=== PATIENT | male | born 1990 | race Caucasian/White ===

== ENCOUNTER 2021-09-18 09:04 | Emergency (ER) | payer MEDICAID, SELFPAY ==
[2021-09-18 09:09] VITALS: BP 142/93; PULSE 102; RESP 17; TEMP 36.6; O2SAT 97; BMI 25.7
--- NOTE | 2021-09-18 09:24 | ED_ITS ---
HPI - Alcohol General: Chief Complaint: Alcohol Stated Complaint: ETOH Time Seen by Provider: 09/18/21 09:06 Source: patient and EMS Mode of arrival: EMS History of Present Illness: 31-year-old male presents emergency room from [facility]. Patient checked in for alcohol rehab there but he had gone on a steiner just before checking in. He took 50 mg of trazodone 25 of Librium and drank a pint of hard liquor. His blood alcohol is 367 at this time. He is awake and alert. Patient tells me he usually take drinks 4 to 5 pints per day. In addition to this he is on 50 mg of 8 Seroquel at night. He has attempted to stop drinking in the past precipitates a lot of anxiety but he has not had any seizures from alcohol withdrawal in the past. He also was formally on very high doses of methadone and was weaned off of that he states this did give him seizures. He denies any injury at this time no recent illness he is acutely intoxicated but very functional evidently quite used to this level of alcohol. MD complaint: alcohol intoxication Associated symptoms: Deny abdominal pain, hematemesis, melena, nausea or vomiting Review of Systems Const: Denies: fever(s), chills, body aches, change in appetite, fatigue or malaise ENMT: Denies: throat pain, ear or mastoid pain, nasal discharge or nasal congestion Card: Denies: chest pain, edema, dyspnea on exertion or orthopnea Resp: Denies: dyspnea, productive cough or non-productive cough GI: Denies: abdominal pain, nausea, vomiting, hematemesis, coffee ground emesis, diarrhea, constipation, bloating, hematochezia or melena : Denies: flank pain, dysuria, urinary frequency or urinary urgency Skin/Breast: Denies: rash or pruritus PFSH ED PFSH: Medical History Alcoholism Seizures Surgical History No pertinent past surgical history Social History Smoking and tobacco status: current every day smoker Alcohol intake: current Alcohol intake frequency: 3 or more drinks per day Alcohol type: hard liquor Physical Exam Const: ORIENTATION/CONSCIOUSNESS: Yes awake HENMT: COMMON NORMALS: normocephalic, atraumatic and hearing grossly normal bilaterally HEAD & SCALP: normocephalic and atraumatic Neck/C-Spine: COMMON NORMALS: full ROM, no lymphadenopathy, supple and no JVD Lymph: LYMPHATIC: no lymphadenopathy noted and no lymphedema noted Resp: COMMON NORMALS: normal respiratory effort, No retractions, No use of accessory muscles and clear to auscultation bilaterally AUSCULTATION: clear to auscultation bilaterally Cardio: COMMON NORMALS: no JVD, regular rate, regular rhythm and No murmurs present (Cardio) RATE: regular rate RHYTHM: regular rhythm GI: COMMON NORMALS: Soft to palpation and No hepatosplenomegaly present AUSCULTATION: Yes normoactive bowel sounds PALPATION: Yes Soft to palpation, No Tenderness to palpation present (GI), No Guarding due to palpation present (GI) and Yes No hepatosplenomegaly present Extremity: COMMON NORMALS: normal to inspection, capillary refill normal, no clubbing, cyanosis or edema, no calf tenderness and no pedal edema Skin: COMMON NORMALS: no rashes or lesions noted GENERAL SKIN EXAM: no rashes or lesions noted Course 2 Vital Signs: Vital signs: Vital Signs Temperature 98.0 F 09/18/21 09:31 Pulse Rate 85 09/18/21 09:31 Respiratory Rate 16 09/18/21 09:31 Blood Pressure 124/87 09/18/21 09:31 Pulse Oximetry 96 09/18/21 09:31 Oxygen Delivery Me thod 09/18/21 09:31 MDM - Alcohol Medical Decision Making Patient left AMA before visit was completed he is acutely intoxicated. He is supposed to be going to [facility]. He left AGAINST MEDICAL ADVICE prior to completion of service today. Lab Data : 09/18/21 09:20 09/18/21 09:20 Laboratory Results WBC 6.4 10^3/uL (4.0-10.0) 09/18/21 09:20 RBC 4.35 10^6/uL (4.1-5.3) 09/18/21 09:20 Hgb 15.1 g/dL (11.7-16.6) 09/18/21 09:20 Hct 43.7 % (42.0-52.0) 09/18/21 09:20 MCV 100.5 fl (80-94) H 09/18/21 09:20 MCH 34.7 pg (28.0-34.0) H 09/18/21 09:20 MCHC 34.6 g/dL (30.0-36.0) 09/18/21 09:20 RDW 14.4 % (12.1-15.1) 09/18/21 09:20 Plt Count 124 10^3/cmm (130-400) L 09/18/21 09:20 MPV 11.0 fL (7.4-10.4) H 09/18/21 09:20 Neut % (Auto) 65.0 % 09/18/21 09:20 Lymph % (Auto) 25.6 % 09/18/21 09:20 Cross % (Auto) 7.7 % 09/18/21 09:20 Eos % (Auto) 0.8 % 09/18/21 09:20 Baso % (Auto) 0.6 % 09/18/21 09:20 Neut # (Auto) 4.13 10^3/uL (1.8-7.7) 09/18/21 09:20 Lymph # (Auto) 1.6 10^3/uL (0.8-4.8) 09/18/21 09:20 Cross # (Auto) 0.5 10^3/uL (0.2-0.9) 09/18/21 09:20 Eos # (Auto) 0.1 10^3/uL (0.0-0.8) 09/18/21 09:20 Baso # (Auto) 0.0 10^3/uL (0.0-0.1) 09/18/21 09:20 Nucleated RBC % (auto) 0 % 09/18/21 09:20 Nucleated RBCs # 0.0 /100WBC 09/18/21 09:20 PT 13.40 SECONDS (12.1-14.9) 09/18/21 09:20 INR 0.99 (0.8-1.2) 09/18/21 09:20 APTT 29.5 SECONDS (23.9-36.7) 09/18/21 09:20 Sodium 138 mmol/L (136-145) 09/18/21 09:20 Potassium 3.3 mmol/L (3.5-5.1) L 09/18/21 09:20 Chloride 95 mmol/L (98-107) L 09/18/21 09:20 Carbon Dioxide 31 mmol/L (22-29) H 09/18/21 09:20 Anion Gap 15.3 (5-19) 09/18/21 09:20 BUN 11 mg/dL (6-20) 09/18/21 09:20 Creatinine 0.7 mg/dL (0.7-1.2) 09/18/21 09:20 GFR Calculation 129.9 mL/min (90-130) 09/18/21 09:20 Glucose 135 mg/dL (65-115) H 09/18/21 09:20 Calculated Osmolality 287 mOsm/kg (285-295) 09/18/21 09:20 Calcium 7.9 mg/dL (8.5-10.5) L 09/18/21 09:20 Total Bilirubin 0.6 mg/dL (0.15-1.2) 09/18/21 09:20 AST 253 U/L (0-40) H 09/18/21 09:20 ALT 179 U/L (0-41) H 09/18/21 09:20 Alkaline Phosphatase 353 IU/L (40-130) H 09/18/21 09:20 Total Protein 6.2 g/dL (6.6-8.7) L 09/18/21 09:20 Albumin 3.3 g/dL (3.5-5.2) L 09/18/21 09:20 Globulin 2.9 g/dL (1.3-4.6) 09/18/21 09:20 Lipase 105 U/L (13-60) H 09/18/21 09:20 Discharge Plan Discharge Patient Disposition: Left Against Medical Advice Clinical Impression: Alcoholic intoxication Condition: Stable Prescriptions: No Action ondansetron HCl [Zofran] 4 mg Tablet 4 mg PO Q6H PRN (Reason: Nausea And Vomiting) magnesium oxide 400 mg magnesium Tablet 400 mg PO BID doxepin 50 mg Capsule 50 mg PO BEDTIME clonidine HCl 0.1 mg Tablet 0.1 mg PO BID PRN (Reason: Blood Pressure) gabapentin 300 mg Capsule 300 mg PO TID acamprosate 333 mg Tablet,Delayed Release (Dr/Ec) 666 mg PO TID Rx Instructions: administer with mid-day and evening meals Keppra 500 mg tablet 500 mg PO BID Qty: 60 0RF potassium chloride 20 mEq tablet extended release 20 meq PO BID Qty: 10 0RF Coding Level of Care Code ED Marine Safety Officer for Aleida Ventura
[2021-09-18] MEDS: sodium chloride 0.9% 1,000 ML 999 ML IV (09:30)
[2021-09-18] MEDS: ondansetron 2 mg/ML SDV 2 mL 4 MG IVP (09:30)
[2021-09-18 09:31] VITALS: BP 124/87; PULSE 85; RESP 16; TEMP 36.7; O2SAT 96
[2021-09-18 09:39] LABS: Basophils % 0.6 %; Eosinophils # 0.1 10^3/uL (0.0-0.8); Eosinophils % 0.8 %; Hematocrit 43.7 % (42.0-52.0); Hemoglobin 15.1 g/dL (11.7-16.6); Lymphocytes # 1.6 10^3/uL (0.8-4.8); Lymphocytes % 25.6 %; Mean Corpuscular HGB Conc 34.6 g/dL (30.0-36.0); Mean Corpuscular Hemoglobin 34.7 pg (28.0-34.0); Mean Corpuscular Volume 100.5 fl (80-94); Monocytes # 0.5 10^3/uL (0.2-0.9); Monocytes % 7.7 %; Neutrophils # 4.13 10^3/uL (1.8-7.7); Nucleated Red Blood Cells % 0 %; Platelet Count 124 10^3/cmm (130-400); Red Blood Count 4.35 10^6/uL (4.1-5.3); Red Cell Distribution Width 14.4 % (12.1-15.1); White Blood Count 6.4 10^3/uL (4.0-10.0)
[2021-09-18 09:48] LABS: INR 0.99 (0.8-1.2)
[2021-09-18 09:49] LABS: Partial Thromboplastin Time 29.5 SECONDS (23.9-36.7)
[2021-09-18 09:58] LABS: Alanine Aminotransferase 179 U/L (0-41); Albumin Level 3.3 g/dL (3.5-5.2); Alkaline Phosphatase 353 IU/L (40-130); Anion Gap 15.3 (5-19); Aspartate Amino Transferase 253 U/L (0-40); Blood Urea Nitrogen 11 mg/dL (6-20); Calcium 7.9 mg/dL (8.5-10.5); Carbon Dioxide 31 mmol/L (22-29); Chloride 95 mmol/L (98-107); Globulin 2.9 g/dL (1.3-4.6); Glomerular Filtration Rate 129.9 mL/min (90-130); Glucose 135 mg/dL (65-115); Lipase 105 U/L (13-60); Osmolality Calculated 287 mOsm/kg (285-295); Potassium 3.3 mmol/L (3.5-5.1); Sodium 138 mmol/L (136-145); Total Bilirubin 0.6 mg/dL (0.15-1.2); Total Protein 6.2 g/dL (6.6-8.7)
--- NOTE | 2021-09-18 10:19 | PC.NURSE ---
Patient yelling out of room, states he isn't going to sit here any longer and not be taken care of. Patient notified that physician has been notified. Patient requests to leave the facility at this time, states he wants to call his family and be taken back to rehab center. IV removed by RN and patient escorted to waiting room by security staff. ER provider notified.
== END 2021-09-18 10:26 | disposition left against medical advice (07) ==
PROVIDERS: Emergency Provider Family Medicine
DX: F10.129 Alcohol abuse with intoxication, unspecified (principal); Z53.21 Procedure and treatment not carried out due to patient leaving prior to being seen by health care provider; F17.210 Nicotine dependence, cigarettes, uncomplicated
CPT/HCPCS: 80053; 83690; 85025; 85610; 85730; 96374; 99284; J2405; J7030

== ENCOUNTER 2021-09-18 10:59 | Emergency (ER) | payer MEDICAID, SELFPAY ==
[2021-09-18 13:30] VITALS: BP 107/74; PULSE 92; RESP 14; TEMP 36.6; O2SAT 97; BMI 24.7
[2021-09-18 14:06] VITALS: BP 120/84; PULSE 94; RESP 15; TEMP 36.4; O2SAT 100; BMI 24.3
--- NOTE | 2021-09-18 14:10 | W.ED.ALCOHOL ---
Documented by User: RASHARD Mack 09/18/21 17:07 HPI - Alcohol General: Chief Complaint: Alcohol Stated Complaint: ETOH Time Seen by Provider: 09/18/21 13:41 Source: patient Mode of arrival: ambulatory Limitations: no limitations History of Present Illness: Patient is a 31-year-old male who presents to ED today stating that he was told to come to the ED by [facility]. Patient reportedly went to [facility] this morning but was turned away due to his blood alcohol being too high for admission into their facility. He was told to come to the emergency department. Patient was seen here earlier this morning but ended up leaving AMA as he was reportedly unhappy with the length of time regarding his care. Patient then checked into the emergency department again several hours later which is where my care for him started. He is telling me that he needs his medications of Librium, Seroquel, and Trazodone. States he has these medications and they are at [facility]. He reports feeling shaky currently. Patient states he has been drinking 4 to 5 pints of alcohol a day over the past year. He states his last drink was this morning when he had a 50 mL shooter . MD complaint: alcohol intoxication, alcohol withdrawal and medical clearance for detox facility Last drink: Hours (ago) Associated symptoms: Deny abdominal pain, nausea, syncope or vomiting Treatments prior to arrival: none Review of Systems Const: Denies: fever(s), chills, body aches, fatigue or malaise Eyes: Denies: change in vision or blurry vision Card: Denies: chest pain, palpitations, irregular heart rhythm, lightheadedness, syncope or dyspnea on exertion Resp: Denies: dyspnea, productive cough or pain on inspiration GI: Denies: abdominal pain, nausea, vomiting, heartburn or diarrhea : Denies: difficulty urinating or dysuria Musc: Denies: neck pain, back pain or joint pain Skin/Breast: Denies: rash Neuro: Denies: headache(s), numbness in extremities, weakness in extremities or sensory changes Physical Exam Const: COMMON NORMALS: no acute distress, patient oriented x3, no limitations and alert GENERAL APPEARANCE: cooperative ORIENTATION/CONSCIOUSNESS: Yes awake, Yes oriented to person, Yes oriented to place and Yes oriented to time OTHER: patient is intoxicated but is alert and oriented and is able to carry an appropriate conversation with me PAMELAMT: COMMON NORMALS: normocephalic and atraumatic HEAD & SCALP: normal to inspection, normocephalic and atraumatic Resp: COMMON NORMALS: normal respiratory effort and clear to auscultation bilaterally AUSCULTATION: clear to auscultation bilaterally Cardio: COMMON NORMALS: regular rate and regular rhythm RATE: regular rate RHYTHM: regular rhythm Extremity: COMMON NORMALS: normal to inspection GENERAL: Yes normal exam except as noted Neuro: BOBBY COMA SCALE: document GCS findings Bobby coma scale eye opening: Spontaneous Rio coma scale verbal response: Orientated Rio coma scale motor response: Obey commands Bobby coma scale total score: 15 COMMON NORMALS: patient oriented x3, CN's II-XII intact bilaterally, moves all extremities, no focal motor deficits, no sensory deficits noted and gait normal SENSORIUM/ORIENTATION: Yes alert, Yes oriented to person, Yes oriented to place and Yes oriented to time SPEECH: speech normal GAIT: Yes Normal gait present OTHER: pt reports feeling shaky but no tremors noted at rest; no tremors noted with UEs extended Skin: COMMON NORMALS: no rashes or lesions noted GENERAL SKIN EXAM: no rashes or lesions noted Course Vital Signs: Vital signs: Vital Signs Temperature 97.6 F 09/18/21 14:06 Pulse Rate 60 09/18/21 15:19 Respiratory Rate 16 09/18/21 15:19 Blood Pressure 124/86 09/18/21 15:19 Pulse Oximetry 94 09/18/21 15:19 Oxygen Delivery Nv thod 09/18/21 15:19 MDM - Alcohol Medical Decision Making Patient's vital signs are completely stable. He has no signs or symptoms consistent with acute alcohol withdrawal. Alcohol level was drawn here and it was 387 which is actually higher than it was this morning when he was seen. He states he has not drank since early this morning and has only had one 50ml shooter then. Patient had labs drawn this morning. He has elevations to his LFTs most likely from his heavy alcohol use over the past year. He has no history of hepatitis. Patient is walking, talking, eating and has the capacity for decision making. I have no criteria for hospitalization at this time. We have contacted [facility] who is contacting patient's parents and trying to figure out a plan for him to go to their facility once his alcohol comes down. Lab Data Laboratory Results Ethyl Alcohol 387 mg/dL (0-10) H* 09/18/21 09:20 Discharge Plan Discharge Patient Disposition: Home Clinical Impression: Acute alcohol intoxication Qualifiers: Complication of substance-induced condition: uncomplicated Qualified Code(s): F10.920 - Alcohol use, unspecified with intoxication, uncomplicated Condition: Stable Prescriptions: Changed chlordiazepoxide HCl 25 mg Capsule See Rx Instructions .ROUTE .COMPLEX Qty: 27 0RF Rx Instructions: Take 100mg every 6 hours on DAY 1. Take 50mg every 8 hours on DAY 2. Take 50mg every 12 hours on DAY 3. Take 50mg on DAY 4. No Action trazodone 50 mg Tablet 50 mg PO BEDTIME PRN (Reason: Sleep) Zofran 4 mg Tablet 4 mg PO Q6H PRN (Reason: Nausea And Vomiting) Seroquel 50 mg Tablet 50 mg PO BEDTIME potassium chloride 20 mEq Tablet Extended Release 20 meq PO BID magnesium oxide 400 mg magnesium Tablet 400 mg PO BID Discharge Orders: Discharge ED (Routine); Ordered 09/18/21 Ordered By: Jeanette Saleh Coding Level of Care Code ED Parts Order And Stock Clerk for Chg Fwd Exam Detailed Documented by User: Josh Cardenas DO 09/19/21 06:53 HPI - Alcohol General: Chief Complaint: Alcohol Stated Complaint: ETOH Time Seen by Provider: 09/18/21 13:41 Physical Exam Neuro: BOBBY COMA SCALE: document GCS findings Rio coma scale total score: 15 Course Vital Signs: Vital signs: Vital Signs Temperature 97.6 F 09/18/21 14:06 Pulse Rate 60 09/18/21 15:19 Respiratory Rate 16 09/18/21 15:19 Blood Pressure 124/86 09/18/21 15:19 Pulse Oximetry 94 09/18/21 15:19 Oxygen Delivery Me thod 09/18/21 15:19 MDM - Alcohol Medical Decision Making Patient's vital signs are completely stable. He has no signs or symptoms consistent with acute alcohol withdrawal. Alcohol level was drawn here and it was 387 which is actually higher than it was this morning when he was seen. He states he has not drank since early this morning and has only had one 50ml shooter then. Patient had labs drawn this morning. He has elevations to his LFTs most likely from his heavy alcohol use over the past year. He has no history of hepatitis. Patient is walking, talking, eating and has the capacity for decision making. I have no criteria for hospitalization at this time. We have contacted [facility] who is contacting patient's parents and trying to figure out a plan for him to go to their facility once his alcohol comes down. Chart reviewed and patient discussed with midlevel. Agree with assessment and plan. Lab Data Laboratory Results Ethyl Alcohol 387 mg/dL (0-10) H* 09/18/21 09:20 Discharge Plan Discharge Patient Disposition: Home Clinical Impression: Acute alcohol intoxication Qualifiers: Complication of substance-induced condition: uncomplicated Qualified Code(s): F10.920 - Alcohol use, unspecified with intoxication, uncomplicated Condition: Stable Prescriptions: Changed chlordiazepoxide HCl 25 mg Capsule See Rx Instructions .ROUTE .COMPLEX Qty: 27 0RF Rx Instructions: Take 100mg every 6 hours on DAY 1. Take 50mg every 8 hours on DAY 2. Take 50mg every 12 hours on DAY 3. Take 50mg on DAY 4. No Action trazodone 50 mg Tablet 50 mg PO BEDTIME PRN (Reason: Sleep) Zofran 4 mg Tablet 4 mg PO Q6H PRN (Reason: Nausea And Vomiting) Seroquel 50 mg Tablet 50 mg PO BEDTIME potassium chloride 20 mEq Tablet Extended Release 20 meq PO BID magnesium oxide 400 mg magnesium Tablet 400 mg PO BID Discharge Orders: Discharge ED (Routine); Ordered 09/18/21 Ordered By: Jeanette Saleh Coding Level of Care Code ED Parts Order And Stock Clerk for Chg Fwd Exam Detailed
[2021-09-18] MEDS: ondansetron 2 mg/ML SDV 2 mL 4 MG IM (14:29)
[2021-09-18] MEDS: multivitamin therapeutic Tablet 1 TAB PO (14:29)
[2021-09-18] MEDS: LORazepam 1 mg Tablet PO (14:29)
[2021-09-18] MEDS: chlordiazePOXIDE 25 mg Capsule 100 MG PO (14:38)
[2021-09-18 15:19] VITALS: BP 124/86; PULSE 60; RESP 16; O2SAT 94
[2021-09-18 15:21] LABS: Alcohol Level 387 mg/dL (0-10)
--- NOTE | 2021-09-18 16:25 | PC.NURSE ---
PT WAS DISCHARGE TO THE WAITING ROOM WITH A BLOOD ALCOHOL 387 PER ZAFAR Fragoso DISCHARGE INSTRUCTIONS. [facility] WAS NOTIFIED ON PTs CONDITION
== END 2021-09-18 16:24 | disposition home or self-care (01) ==
PROVIDERS: Emergency Provider Physician Assistant
DX: F10.920 Alcohol use, unspecified with intoxication, uncomplicated (principal); Y90.8 Blood alcohol level of 240 mg/100 ml or more
CPT/HCPCS: 80307; 96372; 99284; J2405

== ENCOUNTER 2021-09-19 10:28 | Emergency (ER) | payer MEDICAID, SELFPAY ==
--- NOTE | 2021-09-19 10:32 | ECG_ITS ---
[facility] Test Date: 2021-09-19 Pat Name: Adalid Hazel Department: Room: Gender: Male Mystery Shopper: : 1990 Requested By: Josh Carranza Order Number: [id number] Dilip MD: Bashir Sauer M.D. Measurements Intervals [place] Rate: 112 P: 49 WI: 130 QRS: 85 QRSD: 86 T: 35 QT: 331 QTc: 454 Interpretive Statements SINUS TACHYCARDIA NONSPECIFIC T-WAVE ABNORMALITY No previous ECG available for comparison Electronically Signed On 09-19-2021 18:56:57 CDT by Bashir Sauer M.D. [id number]
[2021-09-19 10:40] VITALS: BP 143/94; PULSE 103; RESP 18; TEMP 36.8; O2SAT 97; BMI 25.0
[2021-09-19 10:48] VITALS: BP 143/94; PULSE 103; RESP 18; TEMP 36.8; O2SAT 97
[2021-09-19] MEDS: lidocaine 2% viscous 15 ML, aluminum-mag hydrox-simethicon 30 ML, sucralfate oral liq 1 GM PO (11:02)
[2021-09-19] MEDS: LORazepam 2 mg Tablet PO (11:03)
[2021-09-19] MEDS: cloNIDine 0.1 mg Tablet PO (11:03)
--- NOTE | 2021-09-19 11:16 | ED_ITS ---
HPI - Chest Pain General: Chief Complaint: Chest Pain Stated Complaint: CHEST TIGHTNESS/ ANXIETY/ ETOH WITHDRAWAL Time Seen by Provider: 09/19/21 10:32 Source: patient Mode of arrival: ambulatory Limitations: no limitations History of Present Illness: 31-year-old male who presents to the emergency room from [facility] with a complaint of chest pain. Patient was here twice yesterday was highly intoxicated and even more so at his second visit. He still maintains he had not been drinking at all since the night before this even when presented with evidence that his blood alcohol is increased. Patient was not having any active DTs yesterday and was discharged from the emergency room with Librium taper. He did not take any of his medications this morning. He is having anxiety and some chest discomfort. He has no known history of heart disease. MD complaint: chest discomfort Onset (ago): minute(s) Timing of current episode: episodic Prior episodes: Yes Onset: during rest Pain radiation: none Severity: mild Quality: heaviness Relieving factors: nothing Exacerbating factors: nothing Associated symptoms: Deny abdominal pain, diaphoresis, dyspnea, fever(s), leg edema, nausea, palpitations, sense of impending doom, syncope or vomiting Treatment prior to arrival: none Review of Systems Const: Denies: fever(s), chills, fatigue, malaise or diaphoresis ENMT: Denies: throat pain, ear or mastoid pain, nasal discharge or nasal congestion Card: Denies: chest pain, palpitations or syncope Resp: Denies: dyspnea, productive cough or non-productive cough GI: Denies: abdominal pain, nausea or vomiting : Denies: flank pain, difficulty urinating, dysuria, urinary frequency or urinary urgency Skin/Breast: Denies: rash or pruritus [facility] ED PFSH: Medical History (Updated 09/27/21 @ 00:01 by ) Alcoholism Surgical History (Updated 09/19/21 @ 11:19 by Josh Cardenas DO) No pertinent past surgical history Social History (Updated 09/19/21 @ 11:19 by Josh Cardenas DO) Smoking and tobacco status: current every day smoker Alcohol intake: current Alcohol intake frequency: 3 or more drinks per day Alcohol type: hard liquor Physical Exam Const: COMMON NORMALS: no acute distress GENERAL APPEARANCE: cooperative and comfortable ORIENTATION/CONSCIOUSNESS: Yes awake, Yes oriented to person, Yes oriented to place and Yes oriented to time HENMT: COMMON NORMALS: normocephalic, atraumatic and hearing grossly normal bilaterally HEAD & SCALP: normocephalic and atraumatic Resp: COMMON NORMALS: normal respiratory effort, No retractions, No use of accessory muscles and clear to auscultation bilaterally AUSCULTATION: clear to auscultation bilaterally Cardio: COMMON NORMALS: regular rate, regular rhythm and No murmurs present (Cardio) RATE: regular rate RHYTHM: regular rhythm GI: COMMON NORMALS: Soft to palpation and No hepatosplenomegaly present AUSCULTATION: Yes normoactive bowel sounds PALPATION: Yes Soft to palpation, No Tenderness to palpation present (GI), No Guarding due to palpation present (GI) and Yes No hepatosplenomegaly present Extremity: COMMON NORMALS: normal to inspection, capillary refill normal, no clubbing, cyanosis or edema, no calf tenderness and no pedal edema Neuro: SENSORIUM/ORIENTATION: Yes oriented to person, Yes oriented to place and Yes oriented to time Skin: COMMON NORMALS: no rashes or lesions noted GENERAL SKIN EXAM: no rashes or lesions noted Course Vital Signs: Vital signs: Vital Signs Temperature 98.2 F 09/19/21 10:48 Pulse Rate 103 H 09/19/21 10:48 Respiratory Rate 18 09/19/21 10:48 Blood Pressure 130/83 09/19/21 12:32 Pulse Oximetry 97 09/19/21 10:48 Oxygen Delivery Me thod 09/19/21 10:48 MDM - Chest Pain Medical Decision Making Extremely anxious at this point he does not have any signs of withdrawing vertigo and discharge him home we will prolong his Librium taper new prescription written. Medical Records I reviewed the patient's medical records. Lab Data I reviewed the patient's lab results. Laboratory Results Ethyl Alcohol < 10 mg/dL (0-10) 09/19/21 10:54 Discharge Plan Discharge Patient Disposition: Home Clinical Impression: Alcoholism, Anxiety Prescriptions: New chlordiazepoxide HCl 25 mg capsule 25 mg PO QID Qty: 31 0RF Rx Instructions: 100 mg every 6 hours day 1, 50 mg every 6 hours day 2, and 50 mg every 8 hours day 3, 50 mg every 12 hours day 4, 50 mg daily on days 5 and 6 Discontinued chlordiazepoxide HCl 25 mg Capsule See Rx Instructions .ROUTE .COMPLEX Qty: 27 0RF Rx Instructions: Take 100mg every 6 hours on DAY 1. Take 50mg every 8 hours on DAY 2. Take 50mg every 12 hours on DAY 3. Take 50mg on DAY 4. No Action trazodone 50 mg Tablet 50 mg PO BEDTIME PRN (Reason: Sleep) Zofran 4 mg Tablet 4 mg PO Q6H PRN (Reason: Nausea And Vomiting) Seroquel 50 mg Tablet 50 mg PO BEDTIME potassium chloride 20 mEq Tablet Extended Release 20 meq PO BID magnesium oxide 400 mg magnesium Tablet 400 mg PO BID Discharge Orders: Discharge ED (Routine); Ordered 09/19/21 Ordered By: Josh Cardenas Discharge Diet: Usual diet Discharge Activity: Increase activity as tolerated Patient Instructions: Opioid Safety Activity Restrictions/Additional Instructions: Recommend follow-up with [facility] with psychiatry within the next week. Coding Level of Care Code ED Rate Examiner for Aleida Fwsarah Exam Detailed
[2021-09-19 11:34] LABS: Alcohol Level < 10 mg/dL (0-10)
[2021-09-19 12:32] VITALS: BP 130/83
== END 2021-09-19 13:02 | disposition home or self-care (01) ==
PROVIDERS: Emergency Provider Family Medicine
DX: F41.9 Anxiety disorder, unspecified (principal); F10.20 Alcohol dependence, uncomplicated; F17.210 Nicotine dependence, cigarettes, uncomplicated
CPT/HCPCS: 80307; 93005; 99284

== ENCOUNTER 2021-09-27 13:53 | Emergency (ER) | payer MEDICAID, SELFPAY ==
[2021-09-27 13:56] VITALS: BP 129/86; PULSE 99; RESP 18; TEMP 37.4; O2SAT 98
--- NOTE | 2021-09-27 14:01 | W.ED.SEIZURE ---
HPI - Seizure General: Chief Complaint: Seizure Stated Complaint: SEIZURE Time Seen by Provider: 09/27/21 13:58 Source: patient Mode of arrival: EMS Limitations: no limitations History of Present Illness: HPI Narrative: 31-year-old male presents to the emergency room via EMS after a seizure. Patient is at a local inpatient alcohol rehab and had a seizure today. He has had seizures in the past which he related to stopping alcohol and drugs. Its been about 10 days or more since his last drink. We had seen him back on the eighth which would have been 9 days ago and he had been intoxicated at that time. complaint: seizure Onset (ago): minute(s) Description of Episode: loss of consciousness and tonic-clonic movement Duration of episode: 5 -: minutes(s) Trauma: No Seizure History: Yes Place: [facility] rehab Possible Precipitating Event: medication Associated symptoms: Deny chest pain, chills, confusion, cough, diaphoresis, fever(s), anorexia, malaise, rash, short of breath, syncope or weakness Treatments prior to arrival: none Review of Systems Const: Denies: fever(s), chills, fatigue, malaise or diaphoresis ENMT: Denies: throat pain, ear or mastoid pain, nasal discharge or nasal congestion Card: Denies: chest pain or syncope Resp: Denies: dyspnea, productive cough or non-productive cough GI: Denies: abdominal pain, nausea, vomiting, hematemesis, coffee ground emesis, diarrhea, constipation, bloating, hematochezia or melena : Denies: flank pain, dysuria, urinary frequency or urinary urgency Musc: Denies: neck pain or back pain Skin/Breast: Denies: rash or pruritus Neuro: Denies: confusion PFS ED PFSH: Medical History (Updated 09/27/21 @ 15:21 by Josh Cardenas DO) Alcoholism Seizures Surgical History (Updated 09/19/21 @ 11:19 by Josh Cardenas DO) No pertinent past surgical history Social History (Updated 09/19/21 @ 11:19 by Josh Cardenas DO) Smoking and tobacco status: current every day smoker Alcohol intake: current Alcohol intake frequency: 3 or more drinks per day Alcohol type: hard liquor Physical Exam Const: GENERAL APPEARANCE: cooperative and comfortable ORIENTATION/CONSCIOUSNESS: Yes awake, Yes oriented to person, Yes oriented to place and Yes oriented to time HENMT: COMMON NORMALS: normocephalic, atraumatic, hearing grossly normal bilaterally, external ears normal, EAC's normal, TM's normal bilaterally, Normal nasal mucous membranes and turbinates present, moist oral mucous membranes and oropharynx normal HEAD & SCALP: normocephalic and atraumatic NOSE: Normal nasal mucous membranes and turbinates present EXTERNAL EAR: Yes external ears normal EXTERNAL AUDITORY CANAL: EAC's normal TYMPANIC MEMBRANE: TM's normal bilaterally Eye: COMMON NORMALS: Equal, round and reactive pupils present, EOMs intact bilaterally, conjunctivae normal and no scleral icterus CONJUNCTIVA: Yes conjunctivae normal PUPIL: Yes Equal, round and reactive pupils present Resp: COMMON NORMALS: normal respiratory effort, No retractions, No use of accessory muscles and clear to auscultation bilaterally AUSCULTATION: clear to auscultation bilaterally Cardio: COMMON NORMALS: regular rate, regular rhythm and No murmurs present (Cardio) RATE: regular rate RHYTHM: regular rhythm GI: COMMON NORMALS: Soft to palpation and No hepatosplenomegaly present AUSCULTATION: Yes normoactive bowel sounds PALPATION: Yes Soft to palpation, No Tenderness to palpation present (GI), No Guarding due to palpation present (GI) and Yes No hepatosplenomegaly present Extremity: COMMON NORMALS: normal to inspection, capillary refill normal, no clubbing, cyanosis or edema, no calf tenderness and no pedal edema Neuro: SENSORIUM/ORIENTATION: Yes oriented to person, Yes oriented to place and Yes oriented to time Skin: COMMON NORMALS: no rashes or lesions noted GENERAL SKIN EXAM: no rashes or lesions noted Course Vital Signs: Vital signs: Vital Signs Temperature 99.4 F 09/27/21 13:56 Pulse Rate 87 09/27/21 16:46 Respiratory Rate 18 09/27/21 13:56 Blood Pressure 127/87 09/27/21 16:46 Pulse Oximetry 96 09/27/21 16:19 Oxygen Delivery Wy thod 09/27/21 16:19 MDM - Seizure MDM Narrative Medical decision making narrative: Hypokalemia treated with p.o. supplements and patient was given potassium to take on discharge for 5 days. He needs a repeat potassium level within the next 3 to 5 days. He has not had any further episodes of seizure does sound like he did indeed have a seizure. He has had them in the past as well related to stopping the use the use of drugs and alcohol then. He was not seen or evaluated after the previous episode. Patient was given 1 g Keppra and started on Keppra 500 mg twice daily after discussion with Dr. Will. assistant property manager will make arrangements for him to have a EEG and neurology consult Medical Records Attestation: I reviewed the patient's medical records. Lab Data Attestation: I reviewed the patient's lab results. Result diagrams: 09/27/21 13:42 09/27/21 13:42 Labs: Laboratory Results WBC 9.4 10^3/uL (4.0-10.0) 09/27/21 13:42 RBC 3.23 10^6/uL (4.1-5.3) L 09/27/21 13:42 Hgb 11.4 g/dL (11.7-16.6) L 09/27/21 13:42 Hct 35.0 % (42.0-52.0) L 09/27/21 13:42 MCV 108.4 fl (80-94) H 09/27/21 13:42 MCH 35.3 pg (28.0-34.0) H 09/27/21 13:42 MCHC 32.6 g/dL (30.0-36.0) 09/27/21 13:42 RDW 16.8 % (12.1-15.1) H 09/27/21 13:42 Plt Count 604 10^3/cmm (130-400) H 09/27/21 13:42 MPV 9.5 fL (7.4-10.4) 09/27/21 13:42 Neut % (Auto) 47.2 % 09/27/21 13:42 Lymph % (Auto) 38.2 % 09/27/21 13:42 [place] % (Auto) 12.0 % 09/27/21 13:42 Eos % (Auto) 1.7 % 09/27/21 13:42 Baso % (Auto) 0.7 % 09/27/21 13:42 Neut # (Auto) 4.44 10^3/uL (1.8-7.7) 09/27/21 13:42 Lymph # (Auto) 3.6 10^3/uL (0.8-4.8) 09/27/21 13:42 [place] # (Auto) 1.1 10^3/uL (0.2-0.9) H 09/27/21 13:42 Eos # (Auto) 0.2 10^3/uL (0.0-0.8) 09/27/21 13:42 Baso # (Auto) 0.1 10^3/uL (0.0-0.1) 09/27/21 13:42 Nucleated RBC % (auto) 0 % 09/27/21 13:42 Nucleated RBCs # 0.0 /100WBC 09/27/21 13:42 Sodium 138 mmol/L (136-145) 09/27/21 13:42 Potassium 2.5 mmol/L (3.5-5.1) L* 09/27/21 13:42 Chloride 95 mmol/L (98-107) L 09/27/21 13:42 Carbon Dioxide 22 mmol/L (22-29) 09/27/21 13:42 Anion Gap 23.5 (5-19) H 09/27/21 13:42 BUN 4 mg/dL (6-20) L 09/27/21 13:42 Creatinine 0.8 mg/dL (0.7-1.2) 09/27/21 13:42 GFR Calculation 111.3 mL/min (90-130) 09/27/21 13:42 Glucose 150 mg/dL (65-115) H 09/27/21 13:42 Calculated Osmolality 286 mOsm/kg (285-295) 09/27/21 13:42 Calcium 8.6 mg/dL (8.5-10.5) 09/27/21 13:42 Magnesium 2.0 mg/dL (1.7-2.3) 09/27/21 13:42 Total Bilirubin 0.4 mg/dL (0.15-1.2) 09/27/21 13:42 AST 55 U/L (0-40) H 09/27/21 13:42 ALT 76 U/L (0-41) H 09/27/21 13:42 Alkaline Phosphatase 155 U/L (40-130) H 09/27/21 13:42 Total Protein 6.5 g/dL (6.6-8.7) L 09/27/21 13:42 Albumin 3.6 g/dL (3.5-5.2) 09/27/21 13:42 Globulin 2.9 g/dL (1.3-4.6) 09/27/21 13:42 Urine Color Yellow (Yellow) 09/27/21 15:50 Urine Appearance Clear (CLEAR) 09/27/21 15:50 Urine pH 7 (5-7) 09/27/21 15:50 Ur Specific [place] 1.005 (1.005-1.030) 09/27/21 15:50 Urine Protein Neg (Negative) 09/27/21 15:50 Urine Glucose (UA) Norm (Normal) 09/27/21 15:50 Urine Ketones Negative (Negative) 09/27/21 15:50 Urine Blood Neg (Negative) 09/27/21 15:50 Urine Nitrate Negative (Negative) 09/27/21 15:50 Urine Bilirubin Neg (Negative) 09/27/21 15:50 Urine Urobilinogen Norm mg/dL (Negative) 09/27/21 15:50 Ur Leukocyte Esterase Negative (Negative) 09/27/21 15:50 Discharge Plan Discharge Patient Disposition: Home Clinical Impression: Seizures, Alcoholism in remission, Hypokalemia Condition: Stable Prescriptions: New Keppra 500 mg tablet 500 mg PO BID Qty: 60 0RF potassium chloride 20 mEq tablet extended release 20 meq PO BID Qty: 10 0RF No Action ondansetron HCl [Zofran] 4 mg Tablet 4 mg PO Q6H PRN (Reason: Nausea And Vomiting) magnesium oxide 400 mg magnesium Tablet 400 mg PO BID doxepin 50 mg Capsule 50 mg PO BEDTIME clonidine HCl 0.1 mg Tablet 0.1 mg PO BID PRN (Reason: Blood Pressure) gabapentin 300 mg Capsule 300 mg PO TID acamprosate 333 mg Tablet,Delayed Release (Dr/Ec) 666 mg PO TID Rx Instructions: administer with mid-day and evening meals Discharge Orders: Discharge ED (Routine); Ordered 09/27/21 Ordered By: Josh Cardenas Discharge Diet: Usual diet Discharge Activity: Resume usual activity Patient Instructions: Opioid Safety Activity Restrictions/Additional Instructions: Case management migraines and treatment outpatient EEG and follow-up with neurology. Follow-up with your primary care doctor within the next 5 days to have repeat potassium checked. Coding Level of Care Code ED Chief Of Planning for Chg Fwd Exam Comprehensive
--- NOTE | 2021-09-27 14:37 | ECG_ITS ---
[facility] Test Date: 2021-09-27 Pat Name: Adalid Hazel Department: Room: Gender: Male Sound Engineer Audio Control: : 1990 Requested By: Jsoh Carranza Order Number: [id number] Dilip MD: Bashir Sauer M.D. Measurements Intervals [place] Rate: 85 P: 27 HI: 139 QRS: 76 QRSD: 90 T: 64 QT: 370 QTc: 442 Interpretive Statements SINUS RHYTHM Compared to ECG 09/19/2021 10:53:50 Sinus tachycardia no longer present T-wave abnormality no longer present Electronically Signed On 09-27-2021 17:16:47 CDT by Bashir Sauer M.D. [id number]
[2021-09-27 14:40] LABS: Basophils # 0.1 10^3/uL (0.0-0.1); Basophils % 0.7 %; Eosinophils # 0.2 10^3/uL (0.0-0.8); Eosinophils % 1.7 %; Hemoglobin 11.4 g/dL (11.7-16.6); Lymphocytes # 3.6 10^3/uL (0.8-4.8); Lymphocytes % 38.2 %; Mean Corpuscular HGB Conc 32.6 g/dL (30.0-36.0); Mean Corpuscular Hemoglobin 35.3 pg (28.0-34.0); Mean Corpuscular Volume 108.4 fl (80-94); Mean Platelet Volume 9.5 fL (7.4-10.4); Monocytes # 1.1 10^3/uL (0.2-0.9); Neutrophils # 4.44 10^3/uL (1.8-7.7); Neutrophils % 47.2 %; Nucleated Red Blood Cells % 0 %; Platelet Count 604 10^3/cmm (130-400); Red Blood Count 3.23 10^6/uL (4.1-5.3); Red Cell Distribution Width 16.8 % (12.1-15.1); White Blood Count 9.4 10^3/uL (4.0-10.0)
[2021-09-27 14:42] VITALS: BP 118/68; PULSE 89
[2021-09-27 15:09] LABS: Alanine Aminotransferase 76 U/L (0-41); Albumin Level 3.6 g/dL (3.5-5.2); Alkaline Phosphatase 155 U/L (40-130); Anion Gap 23.5 (5-19); Aspartate Amino Transferase 55 U/L (0-40); Blood Urea Nitrogen 4 mg/dL (6-20); Calcium 8.6 mg/dL (8.5-10.5); Carbon Dioxide 22 mmol/L (22-29); Chloride 95 mmol/L (98-107); Globulin 2.9 g/dL (1.3-4.6); Glomerular Filtration Rate 111.3 mL/min (90-130); Glucose 150 mg/dL (65-115); Osmolality Calculated 286 mOsm/kg (285-295); Sodium 138 mmol/L (136-145); Total Bilirubin 0.4 mg/dL (0.15-1.2); Total Protein 6.5 g/dL (6.6-8.7)
[2021-09-27 15:14] LABS: Potassium 2.5 mmol/L (3.5-5.1)
[2021-09-27] MEDS: potassium chloride oral liq 20 mEq/15 mL UDC 60 MEQ PO (15:42)
[2021-09-27 15:47] VITALS: BP 103/73; PULSE 81; O2SAT 98
[2021-09-27 15:56] LABS: Add Urine Microscopic? NO; Charge for UA Resulting for Rev
[2021-09-27 15:58] LABS: Bilirubin Urine Neg (Negative); Blood Urine Neg (Negative); Glucose Urine UA Norm (Normal); Ketones Urine Negative (Negative); Leukocyte Esterase Urine Negative (Negative); Nitrate Urine Negative (Negative); Protein Urine Neg (Negative); Specific Gravity, Urine 1.005 (1.005-1.030); Urine Appearance Clear (CLEAR); Urine Color Yellow (Yellow); Urobilinogen Urine Norm (Negative); pH Urine 7 (5-7)
[2021-09-27] MEDS: acetaminophen 325 mg Tablet 650 MG PO (16:17)
[2021-09-27 16:19] VITALS: BP 134/81; PULSE 84; O2SAT 96
[2021-09-27 16:46] VITALS: BP 127/87; PULSE 87
--- NOTE | 2021-09-28 10:35 | DCPLANNER ---
Addendum entered by Mya Chang 10/12/21 14:18: manager council received the following message from the neurology clinic regarding follow up appointment: On 10/04/21 @ 16:10 Bety Hayes Wrote To Kirsty Tanner Spoke to pt and he said his PCP got him set up with every thing at [facility] so he will not be needing appointment at this time Original Note: manager council had message to schedule an out patient sleep deprived EEG. manager council faxed signed order to the neurology clinic, who will call patient with appointment information. manager council also had message to schedule a follow up appointment with neurology. manager council sent patients information to the front office of neurology. Patients information will be printed and reviewed. Clinic will call patient with appointment information.
== END 2021-09-27 16:49 | disposition home or self-care (01) ==
PROVIDERS: Emergency Provider Family Medicine
DX: F10.21 Alcohol dependence, in remission (principal); E87.6 Hypokalemia; R56.9 Unspecified convulsions; F17.210 Nicotine dependence, cigarettes, uncomplicated
CPT/HCPCS: 80053; 81003; 83735; 85025; 93005; 96365; 99284; J1953